=== PATIENT | male | born 1995 | race African-American/Black ===

== ENCOUNTER 2016-11-25 05:41 | Day surgery (SDC) | payer BC ==
--- NOTE | ~2016-11-25 | OP ---
Record Of Operation [facility] [address] [place]. [address] NAME: PANCHO TORRES : 89 STATUS : REG [facility] [place] PAT#: [id number] AGE: 21 ADM/REG DATE : 11/25/16 MR#: [id number] REPORT SERV DATE: 11/25/16 DICTATED BY: JESSEE ALLEN DATE: 11/25/16 REPORT STATUS : Draft TRANSCRIBED BY: MODL DATE: 11/25/16 DATE OF PROCEDURE: 11/25/2016 PREOPERATIVE. DIAGNOSIS: Right traumatic conductive hearing loss. 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 PROCEDURE: Right tympanoplasty with ossicular chain reconstruction with [id number] Bebo K-Carmichael Scotts prosthesis. SURGEON: Jessee Allen M.D. ANESTHESIA: General. COMPLICATIONS: None. COUNTS: All counts correct following the procedure. ESTIMATED BLOOD LOSS: Minimal. PREOPERATIVE INFORMED CONSENT: We discussed risks and benefits of surgery including, but not limited to bleeding, infection, possible hearing loss including total deafness, possible postoperative taste distortion, possible disruption or dislodgement of the prosthesis requiring revision surgery, possible persistent conductive hearing loss despite surgery. He understands the risks and benefits of surgery, and consent is on chart. PROCEDURE IN DETAIL: The patient was brought to the operating suite and placed on the operative table in supine position. General endotracheal anesthesia was initiated without incident. Following this, the ear was cleaned and prepped in usual sterile fashion. Following this, the ear canal was injected with approximately 3 mL of 2% lidocaine with 1:100,000 epinephrine for hemostasis. Following this, a standard tympanomeatal flap was raised from the 6 o'clock to 12 o'clock position using a Clinton knife and a lancet knife. The middle ear space was entered using Tran needle. The inferior annulus was lifted up using Gimmick elevator. The superior annulus was lifted up using Tran needle, taking care to preserve the chorda tympani nerve. Then, once the middle ear space was exposed, it was noted that the incudostapedial joint had been , and the capitulum of the stapes and the superstructure of the stapes were intact. The malleoincudal joint was also intact and noted to have a good movement of the incus, but the lenticular process and the superstructure of the stapes were skew and not directly over each other, so a portion of the scutum was taken down using a 1.4 mm cutting bur to have adequate exposure of the long process of the incus and following this, a malleus nipper was used to clip the lenticular process of the incus off to accommodate a Bebo [id number]-[id number]-xcmore prosthesis. The prosthesis was then brought into the field and carefully placed over the lenticular process of the incus, and then the head of the prosthetic was carefully positioned over the capitulum of the stapes and fixated over the anterior and posterior crura. Palpation of the malleus Record Of [address] [place]. [address] NAME: PANCHO TORRES : 89 STATUS : REG [facility] [place] PAT#: [id number] AGE: 21 ADM/REG DATE : 11/25/16 MR#: [id number] REPORT SERV DATE: 11/25/16 DICTATED BY: JESSEE ALLEN DATE: 11/25/16 REPORT STATUS : Draft TRANSCRIBED BY: JEFFREY DATE: 11/25/16 showed excellent movement of the incus in the prosthesis and good light reflex of the round window. The tympanomeatal flap was laid back down into position. The ear canal was filled with Gelfoam out to the lateral aspect of the ear canal, followed by bacitracin ointment and a cotton ball. The patient was awakened from anesthesia and taken to recovery in stable condition. PIYUSH/JEFFREY Jessee Allen M.D. / [id number] CC: Jessee Allen M.D.
[~2016-11-25 05:41] MED LIST: GINKGO BILO2 PO; NORCO1 TA1 PO
== END 2016-11-25 16:29 | disposition home or self-care (01) ==
LOC: SDC 05:41
PROVIDERS: Otolaryngology
PROC: 09U Ear, Nose, Sinus, Supplement (ICD-10-PCS; 2016-11-25)
PROC: 09Q50ZZ Repair Right Middle Ear, Open Approach (ICD-10-PCS; principal; 2016-11-25 07:15)
DX: S04.61XA Injury of acoustic nerve, right side, initial encounter (principal); Z79.891 Long term (current) use of opiate analgesic; Z79.899 Other long term (current) drug therapy; Z98.890 Other specified postprocedural states
CPT/HCPCS: A9270-GY; C1713; J0690; J2250; J2405; J2710; J3010